=== PATIENT | male | born 1990 | race African-American/Black ===

== ENCOUNTER 2018-01-16 00:39 | Emergency (ER) | payer SELFPAY ==
[~2018-01-16] VITALS: Ht 190.5 cm; Wt 118.0 kg
[2018-01-16 00:52] VITALS: BP 116/90
== END 2018-01-16 07:41 | disposition left against medical advice (07) ==
LOC: ER 03:45
DX: Z53.21 Procedure and treatment not carried out due to patient leaving prior to being seen by health care provider (principal)